=== PATIENT | male | born 1990 | race Two or more races ===

== ENCOUNTER 2024-04-05 11:39 | Emergency (ER) | payer OTHER ==
[~2024-04-05] VITALS: Ht 175.3 cm; Wt 73.1 kg
[2024-04-05 13:13] VITALS: BP 130/78; PULSE 62; RESP 16; TEMP 98.4; O2SAT 99
[2024-04-05] MEDS ORDERED: IBUP-1454 PO (13:24)
[2024-04-05] MEDS ORDERED: CIPR-173 PO (13:24)
[2024-04-05] MEDS: KETOROLAC TROMETH 30 MG/ML 1ML VIAL IM ONE (13:40)
[2024-04-05] MEDS: cefTRIAXone SOD 1,000 MG VL IM ONE (13:41)
== END 2024-04-05 13:51 | disposition home or self-care (01) ==
LOC: ER 11:39
DX: S61.432A Puncture wound without foreign body of left hand, initial encounter (principal); W26.0XXA Contact with knife, initial encounter; Y93.89 Activity, other specified; Y92.090 Kitchen in other non-institutional residence as the place of occurrence of the external cause; Y99.8 Other external cause status
CPT/HCPCS: 96372; 99284; J0696; J1885